=== PATIENT | female | born 1990 | race American Indian/Alaskan Native ===

== ENCOUNTER 2019-06-16 07:40 | Emergency (ER) | payer MEDICAID, OTHER ==
[2019-06-16] MEDS ORDERED: DELTASONE PO ONE (08:20)
[2019-06-16] MEDS ORDERED: NACL 0.9% 1000 ML 1,000 ML IV ONE ×2 (08:26→10:27)
[2019-06-16] MEDS ORDERED: REGLAN IV ONE (08:26)
[2019-06-16] MEDS ORDERED: ZOFRAN IV ONE ×2 (08:26→10:27)
[2019-06-16 08:49] LABS: Basophils # (Auto) 0.1 K/mm3 (0.0-0.1); Basophils % (Auto) 0.6 % (0.0-1.8); Eosinophils # (Auto) 0.1 K/mm3 (0.0-0.4); Eosinophils % (Auto) 0.8 % (0.0-4.3); Hematocrit 33.9 % (30.3-42.9); Hemoglobin 11.5 gm/dl (10.1-14.3); Lymphocytes # (Auto) 1.6 K/mm3 (1.2-5.4); Mean Corpuscular HGB Conc 34 % (30-34); Mean Corpuscular Volume 81 fl (79-97); Monocytes # (Auto) 0.7 K/mm3 (0.0-0.8); Monocytes % (Auto) 7.7 % (0.0-7.3); Platelet Count 263 K/mm3 (140-440); Red Blood Count 4.22 M/mm3 (3.65-5.03); Red Cell Distribution Width 18.2 % (13.2-15.2)
[2019-06-16 09:09] LABS: Bacteria,Urine 2+ /HPF (Negative); Bilirubin,Urine NEG (Negative); Blood,Urine NEG (Negative); Color,Urine Yellow (Yellow); Protein,Urine <15 mg/dL mg/dL (Negative); Urobilinogen,Urine < 2.0 mg/dL (<2.0)
--- NOTE | 2019-06-16 09:11 | Emergency Department Report ---
ED General Adult HPI - General Chief complaint: Nausea/Vomiting/Diarrhea Stated complaint: VOMITING BLOOD/10WKS PREG Time Seen by Provider: 06/16/19 08:10 Source: patient Mode of arrival: Ambulatory Limitations: No Limitations - History of Present Illness Initial comments: She presents to the emergency department with a chief complaint of severe morning sickness. Patient is a female who states she is approximately 10 weeks and this has significant amount of vomiting daily. Patient states is not able to keep anything down. Patient denies any abdominal pain, vaginal bleeding. Patient states that she is started on some ice that she feels like the lining of her stomach is now being thrown up. -: Gradual Consistency: constant Improves with: none Worsens with: none Associated Symptoms: denies other symptoms Treatments Prior to Arrival: none - Related Data Previous Rx's Medication Instructions Recorded Last Taken Type Metoclopramide [Reglan] 10 mg PO Q6HR PRN #20 tab 06/16/19 Unknown Rx Ondansetron [Zofran Odt] 4 mg PO Q4HR PRN #20 tab.rapdis 06/16/19 Unknown Rx Allergies Allergy/AdvReac Type Severity Reaction Status Date / Time Penicillins Allergy Unknown Verified 08/19/16 12:43 ED Review of Systems ROS: Stated complaint: VOMITING BLOOD/10WKS PREG Other details as noted in HPI Constitutional: denies: chills, fever Eyes: denies: eye pain, eye discharge, vision change ENT: denies: ear pain, throat pain Respiratory: denies: cough, shortness of breath, wheezing Cardiovascular: denies: chest pain, palpitations Endocrine: no symptoms reported Gastrointestinal: denies: abdominal pain, nausea, diarrhea Genitourinary: denies: urgency, dysuria, discharge Musculoskeletal: denies: back pain, joint swelling, arthralgia Skin: denies: rash, lesions Neurological: denies: headache, weakness, paresthesias Psychiatric: denies: anxiety, depression Hematological/Lymphatic: denies: easy bleeding, easy bruising ED Past Medical Hx - Past Medical History Previous Medical History?: Yes Additional medical history: Epilepsy - Surgical History Past Surgical History?: Yes Additional Surgical History: , LEEP - Social History Smoking Status: Former Smoker Substance Use Type: None - Medications Home Medications: Home Medications Medication Instructions Recorded Confirmed Last Taken Type Metoclopramide [Reglan] 10 mg PO Q6HR PRN #20 tab 06/16/19 Unknown Rx Ondansetron [Zofran Odt] 4 mg PO Q4HR PRN #20 tab.rapdis 06/16/19 Unknown Rx ED Physical Exam - General Limitations: No Limitations General appearance: alert, in no apparent distress - Head Head exam: Present: atraumatic, normocephalic - Eye Eye exam: Present: normal appearance - ENT ENT exam: Present: mucous membranes dry - Neck Neck exam: Present: normal inspection - Respiratory Respiratory exam: Present: normal lung sounds bilaterally. Absent: respiratory distress - Cardiovascular Cardiovascular Exam: Present: normal rhythm, tachycardia. Absent: systolic murmur, diastolic murmur, rubs, gallop - GI/Abdominal GI/Abdominal exam: Present: soft, normal bowel sounds. Absent: distended, tenderness - Extremities Exam Extremities exam: Present: normal inspection - Back Exam Back exam: Present: normal inspection - Neurological Exam Neurological exam: Present: alert, oriented X3, CN II-XII intact. Absent: motor sensory deficit - Psychiatric Psychiatric exam: Present: normal affect, normal mood - Skin Skin exam: Present: warm, dry, intact, normal color. Absent: rash ED Course Vital Signs 06/16/19 07:45 Temperature 99.1 F Pulse Rate 91 H Respiratory 20 Rate Blood Pressure 125/82 O2 Sat by Pulse 100 Oximetry ED Medical Decision Making - Lab Data Result diagrams: 06/16/19 08:36 06/16/19 08:36 Lab Results 06/16/19 06/16/19 06/16/19 Range/Units 08:36 08:36 Unknown WBC 8.8 (4.5-11.0) K/mm3 RBC 4.22 (3.65-5.03) M/mm3 Hgb 11.5 (10.1-14.3) gm/dl Hct 33.9 (30.3-42.9) % MCV 81 (79-97) fl MCH 27 L (28-32) pg MCHC 34 (30-34) % RDW 18.2 H (13.2-15.2) % Plt Count 263 (140-440) K/mm3 Lymph % (Auto) 18.0 (13.4-35.0) % [place] % (Auto) 7.7 H (0.0-7.3) % Eos % (Auto) 0.8 (0.0-4.3) % Baso % (Auto) 0.6 (0.0-1.8) % Lymph # 1.6 (1.2-5.4) K/mm3 [place] # 0.7 (0.0-0.8) K/mm3 Eos # 0.1 (0.0-0.4) K/mm3 Baso # 0.1 (0.0-0.1) K/mm3 Seg Neutrophils % 72.9 H (40.0-70.0) % Seg Neutrophils # 6.4 (1.8-7.7) K/mm3 Sodium 139 (137-145) mmol/L Potassium 4.3 (3.6-5.0) mmol/L Chloride 101.5 (98-107) mmol/L Carbon Dioxide 24 (22-30) mmol/L Anion Gap 18 mmol/L BUN 5 L (7-17) mg/dL Creatinine 0.6 L (0.7-1.2) mg/dL Estimated GFR > 60 ml/min BUN/Creatinine Ratio 8 % Glucose 90 (65-100) mg/dL Calcium 9.6 (8.4-10.2) mg/dL Total Bilirubin 0.20 (0.1-1.2) mg/dL AST 11 (5-40) units/L ALT 7 (7-56) units/L Alkaline Phosphatase 68 (35-129) units/L Total Protein 7.6 (6.3-8.2) g/dL Albumin 3.6 L (3.9-5) g/dL Albumin/Globulin Ratio 0.9 % Urine Color Yellow (Yellow) Urine Turbidity Slightly-cloudy (Clear) Urine pH 7.0 (5.0-7.0) Ur Specific [place] 1.015 (1.003-1.030) Urine Protein <15 mg/dl (Negative) mg/dL Urine Glucose (UA) Neg (Negative) mg/dL Urine Ketones Neg (Negative) mg/dL Urine Blood Neg (Negative) Urine Nitrite Neg (Negative) Urine Bilirubin Neg (Negative) Urine Urobilinogen < 2.0 (<2.0) mg/dL Ur Leukocyte Esterase Neg (Negative) Urine WBC (Auto) 2.0 (0.0-6.0) /HPF Urine RBC (Auto) 3.0 (0.0-6.0) /HPF U Epithel Cells (Auto) 18.0 H (0-13.0) /HPF Urine Bacteria (Auto) 2+ (Negative) /HPF - Medical Decision Making Some toes improve with IV medication and IV fluids Critical care attestation.: If time is entered above; I have spent that time in minutes in the direct care of this critically ill patient, excluding procedure time. ED Disposition Clinical Impression: Hyperemesis Disposition: - TO HOME OR SELFCARE Is pt being admited?: No Does the pt Need Aspirin: No Condition: Stable Instructions: Hyperemesis Gravidarum (ED), Morning Sickness (ED) Additional Instructions: return if worse Referrals: PRIMARY CARE, [Primary Care Provider] - 3-5 Days [facility] [Provider Group] - 3-5 Days Time of Disposition: 12:07
[2019-06-16 09:13] LABS: Alanine Aminotransferase 7 units/L (7-56); Albumin 3.6 g/dL (3.9-5); BUN/Creatinine Ratio 8; Blood Urea Nitrogen 5 mg/dL (7-17); Calcium 9.6 mg/dL (8.4-10.2); Hemolysis Index 7
[2019-06-16] MEDS ORDERED: BENADRYL IV ONE (10:28)
[2019-06-16 12:16] VITALS: BP 131/84
== END 2019-06-16 12:16 | disposition home or self-care (01) ==
LOC: ED 07:40
DX: O21.9 Vomiting of pregnancy, unspecified (principal); Z88.0 Allergy status to penicillin; Z3A.10 10 weeks gestation of pregnancy; Z87.891 Personal history of nicotine dependence
CPT/HCPCS: 36415; 80053; 81001; 85025; 96361; 96374; 96375; 96376; 99283; J1200; J2405; J2765; J7030

== ENCOUNTER 2019-09-20 08:59 | Outpatient (CLI) | payer MEDICAID ==
[2019-09-20 10:29] VITALS: BP 111/63
[2019-09-20] MEDS ORDERED: ONDANSETRON 4 MG/2 ML INJ ONE (10:53)
[2019-09-20] MEDS ORDERED: LACTATED RINGERS 1,000 ML ONE (10:53)
[2019-09-20 11:45] LABS: Basophils % (Auto) 0.2 % (0.0-1.8); Eosinophils % (Auto) 0.5 % (0.0-4.3); Hematocrit 26.7 % (30.3-42.9); Hemoglobin 8.9 gm/dl (10.1-14.3); Lymphocytes # (Auto) 1.6 K/mm3 (1.2-5.4); Lymphocytes % (Auto) 16.9 % (13.4-35.0); Mean Corpuscular HGB Conc 33 % (30-34); Mean Corpuscular Volume 83 fl (79-97); Monocytes # (Auto) 0.7 K/mm3 (0.0-0.8); Platelet Count 284 K/mm3 (140-440); Red Cell Distribution Width 15.1 % (13.2-15.2)
[2019-09-20] MEDS ORDERED: ONDANSETRON 4 MG/2 ML INJ IV ONE (11:59)
[2019-09-20] MEDS ORDERED: LACTATED RINGERS 1,000 ML IV SCH (12:00)
[2019-09-20 12:10] LABS: Bilirubin,Urine NEG (Negative); Blood,Urine NEG (Negative); Color,Urine Yellow (Yellow); Protein,Urine <15 mg/dL mg/dL (Negative); Urobilinogen,Urine < 2.0 mg/dL (<2.0); WBC,Urine < 1.0 /HPF (0.0-6.0)
[2019-09-20 12:16] LABS: Alanine Aminotransferase 7 units/L (7-56); Albumin 2.9 g/dL (3.9-5); BUN/Creatinine Ratio 8; Blood Urea Nitrogen 3 mg/dL (7-17); Calcium 8.8 mg/dL (8.4-10.2); Hemolysis Index 4
[2019-09-20] MEDS ORDERED: ACETAMINOPHEN 500 MG TAB PO ONE (13:36)
[2019-09-20] MEDS ORDERED: ACETAMINOPHEN 500 MG TAB ONE (13:41)
== END 2019-09-20 14:46 | disposition home or self-care (01) ==
LOC: TRG 08:59 → ED 08:59 → TRG 08:59 → ED 09:32 → TRG 09:32 → EDSTATUS 09:41 → TRG 14:46
PROVIDERS: ATTEND Obstetrics & Gynecology
DX: O21.2 Late vomiting of pregnancy (principal); Z3A.24 24 weeks gestation of pregnancy
CPT/HCPCS: 36415; 59025; 80053; 81001; 85025; 96361; 96365; J2405; J7120; 96360; 96374

== ENCOUNTER 2019-09-20 14:40 | Emergency (ER) | payer MEDICAID ==
--- NOTE | 2019-09-20 15:30 | Emergency Department Report ---
Blank Doc - Documentation Documentation: 29-year-old female that presents with n/v with blood. Was cleared by L/D. [facility] is 24 weeks . Was sent by OBGYN. This initial assessment/diagnostic orders/clinical plan/treatment(s) is/are subject to change based on patient's health status, clinical progression and re- assessment by fellow clinical providers in the ED. Further treatment and workup at subsequent clinical providers discretion. Patient/guardians urged not to elope from the ED as their condition may be serious if not clinically assessed and managed. Initial orders include: 1- Patient sent to [facility] for further evaluation and treatment 2- labs 3- UA
[2019-09-20] MEDS ORDERED: ONDANSETRON 4 MG ODT TAB PO ONE (20:16)
[2019-09-20 20:34] VITALS: BP 103/62
[2019-09-20 21:02] LABS: Hemoglobin 9.2 gm/dl (10.1-14.3)
--- NOTE | 2019-09-20 21:14 | Emergency Department Report ---
ED GI Bleed HPI - General Chief complaint: Nausea/Vomiting/Diarrhea Stated complaint: 24 WKS VOMIT BLOOD Time Seen by Provider: 09/20/19 15:29 Source: patient Mode of arrival: Ambulatory Limitations: No Limitations - History of Present Illness Initial comments: Ms. Patel is a 29 yo female patient who is currently 24 weeks 3 days who presents with vomiting blood today. Has had severe vomiting throughout . Currently has heartburn. She has had 5 episode of red and brownish emesis. Has mild headache and lightheadedness. Hx of anemia during previous requiring iron transfusion. No current dark or bloody stools. Was evaluated in OB triage prior to returning to the ED. 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 Kaycee Mijares MD complaint: blood streaked emesis, coffee ground emesis -: Gradual, This morning Quality: painless Consistency: now resolved Improves with: medication Worsens with: none Context: other (currently ) Associated Symptoms: other (mild headache mild lightheadedness) - Related Data Previous Rx's Medication Instructions Recorded Last Taken Type Metoclopramide [Reglan] 10 mg PO Q6HR PRN #20 tab 06/16/19 Unknown Rx Ondansetron [Zofran Odt] 4 mg PO Q4HR PRN #20 tab.rapdis 06/16/19 Unknown Rx Allergies Allergy/AdvReac Type Severity Reaction Status Date / Time Penicillins Allergy Unknown Verified 09/20/19 15:32 ED Review of Systems ROS: Stated complaint: 24 WKS VOMIT BLOOD Other details as noted in HPI Comment: All other systems reviewed and negative Constitutional: denies: fever, malaise Cardiovascular: chest pain (heartburn) Gastrointestinal: nausea, vomiting. denies: abdominal pain Neurological: headache ED Past Medical Hx - Past Medical History Previous Medical History?: Yes Hx Hypertension: No Hx Diabetes: No Hx Deep Vein Thrombosis: No Hx Renal Disease: No Hx Sickle Cell Disease: No Hx Seizures: No Hx Asthma: No Hx HIV: No Additional medical history: Epilepsy - Surgical History Past Surgical History?: Yes Additional Surgical History: , LEEP - Social History Smoking Status: Never Smoker Substance Use Type: None - Medications Home Medications: Home Medications Medication Instructions Recorded Confirmed Last Taken Type Metoclopramide [Reglan] 10 mg PO Q6HR PRN #20 tab 08/28/19 Unknown Rx Ondansetron [Zofran Odt] 4 mg PO Q4HR PRN #20 tab.rapdis 06/16/19 Unknown Rx ED Physical Exam - General Limitations: No Limitations General appearance: alert, in no apparent distress, other (pleasant no acute distress appears well) - Head Head exam: Present: atraumatic, normocephalic - Eye Eye exam: Present: normal appearance - ENT ENT exam: Present: mucous membranes moist - Neck Neck exam: Present: normal inspection, full ROM - Respiratory Respiratory exam: Present: normal lung sounds bilaterally, rhonchi. Absent: respiratory distress, wheezes, rales, stridor - Cardiovascular Cardiovascular Exam: Present: regular rate, normal rhythm, normal heart sounds. Absent: systolic murmur, diastolic murmur, rubs, gallop - GI/Abdominal GI/Abdominal exam: Present: soft, distended, tenderness, guarding, rebound, normal bowel sounds - Extremities Exam Extremities exam: Present: normal inspection - Neurological Exam Neurological exam: Present: alert, oriented X3 - Psychiatric Psychiatric exam: Present: normal affect, normal mood - Skin Skin exam: Present: warm, dry, intact, normal color. Absent: rash ED Course Vital Signs 09/20/19 09/20/19 15:29 20:33 Temperature 98.7 F 99.4 F Pulse Rate 83 76 Respiratory 18 16 Rate Blood Pressure 105/51 Blood Pressure 103/62 [Right] O2 Sat by Pulse 100 100 Oximetry ED Medical Decision Making - Lab Data Result diagrams: 09/20/19 20:35 - Medical Decision Making Gabriella is a very pleasant 29-year-old female who presents with reported hematemesis. Serial H&H's revealed hemoglobin 8.6 trending upward to 9.2 over an 8 hour period. I do not suspect active GI bleed. Katerina-Franklin tear is a possibility. Ms. Patel appears well. Ambulatory without difficulty. She tolerated PO in the ED without further vomiting over a 6 hour period. She verbalized understanding of return precautions. She will take the Zofran on a scheduled basis. She has a appointment scheduled with Dr. Alfaro her personal tool or die drawing checker in 3 days on . Critical care attestation.: If time is entered above; I have spent that time in minutes in the direct care of this critically ill patient, excluding procedure time. ED Disposition Clinical Impression: Hyperemesis gravidarum, Hematemesis with nausea Disposition: DC-01 TO HOME OR SELFCARE Is pt being admited?: No Does the pt Need Aspirin: No Condition: Stable Additional Instructions: Please return to the ER immediately if you develop chest pain, lightheadedness, dark stools or bloody stools. Referrals: KAYCEE MIJARES MD [Staff Physician] - 3-5 Days
== END 2019-09-20 22:00 | disposition home or self-care (01) ==
LOC: ED 14:40
DX: O21.0 Mild hyperemesis gravidarum (principal); Z3A.24 24 weeks gestation of pregnancy; Z98.890 Other specified postprocedural states; Z88.0 Allergy status to penicillin
CPT/HCPCS: 36415; 59025; 80053; 81001; 85014; 85018; 85025; 96360; 96361; 96365; 96374; J2405; J7120; Q0162

== ENCOUNTER 2020-01-02 23:18 | Outpatient (CLI) | payer MEDICAID ==
[2020-01-02] MEDS ORDERED: ACETAMINOPHEN W/CODEINE 300-30 MG TAB PO ONE (23:31)
== END 2020-01-03 00:21 | disposition home or self-care (01) ==
LOC: TRG 23:18
PROVIDERS: ATTEND Obstetrics & Gynecology
DX: O47.1 False labor at or after 37 completed weeks of gestation (principal); Z3A.39 39 weeks gestation of pregnancy
CPT/HCPCS: 59025; Q0177

== ENCOUNTER 2021-01-05 15:20 | Emergency (ER) | payer SELFPAY ==
[2021-01-05] MEDS ORDERED: ONDANSETRON 4 MG/2 ML INJ IM ONE (15:40)
[2021-01-05] MEDS ORDERED: BUTALB/ACETAMINOPHEN/CAFFEINE TAB PO ONE (15:40)
[2021-01-05] MEDS ORDERED: HYOSCYAMINE SUBL 0.125 MG TAB SL ONE (15:40)
--- NOTE | 2021-01-05 16:28 | Emergency Department Report ---
- General Chief Complaint: Headache Stated Complaint: VOMITTING/DIARRHEA/BODY ACHES Time Seen by Provider: 01/05/21 15:36 Source: patient Mode of arrival: Ambulatory Limitations: No Limitations - History of Present Illness Initial Comments: Patient is a 30-year-old female presents emergency room complaints of viral-like symptoms that began 5 days ago. She has associated generalized body aches, headache, chills, fever, nausea, vomiting, diarrhea. She states that she has been taking Tylenol, ibuprofen, Sudafed without much relief. She states that she last took ibuprofen approximately 1 hour prior to arrival. She denies any cough, shortness of breath, abdominal pain, urinary symptoms, back pain. She states that she has had a sick contact, she states her [id number] son had the same symptoms last week. She states that he went to the ER and was diagnosed with a viral illness. She states that he was tested for COVID-19 and was negative. She has not received COVID-19 testing. She has a past medical history of epilepsy. No allergies to medications. Last menstrual cycle 12/22/2020. She denies any recent travel. - Related Data Home Medications Medication Instructions Recorded Confirmed Last Taken Lamictal 200 mg PO BID 01/08/20 01/08/20 01/07/20 09:00 Previous Rx's Medication Instructions Recorded Last Taken Type Metoclopramide [Reglan] 10 mg PO Q6HR PRN #20 tab 06/16/19 Unknown Rx Ondansetron [Zofran Odt] 4 mg PO Q4HR PRN #20 tab.rapdis 06/16/19 Unknown Rx Docusate Sodium [Colace] 100 mg PO BID PRN #60 capsule 01/08/20 Unknown Rx Ibuprofen [Motrin] 800 mg PO Q8HR PRN #40 tablet 01/08/20 Unknown Rx oxyCODONE /ACETAMINOPHEN [Percocet 2 tab PO Q6HR PRN #40 tablet 01/08/20 Unknown Rx 5/325] Butalb/Acetaminophen/Caffeine 1 cap PO Q8HR PRN #12 cap 01/05/21 Unknown Rx [Fioricet 50-300-40 mg CAP] Ondansetron [Zofran Odt] 4 mg PO Q8HR PRN #10 tab.rapdis 01/05/21 Unknown Rx Allergies Allergy/AdvReac Type Severity Reaction Status Date / Time No Known Allergies Allergy Unverified 01/05/21 15:26 ED Review of Systems ROS: Stated complaint: VOMITTING/DIARRHEA/BODY ACHES Other details as noted in HPI Comment: All other systems reviewed and negative ED Past Medical Hx - Past Medical History Previous Medical History?: Yes Hx Hypertension: No Hx Heart Attack/AMI: No Hx Diabetes: No Hx Deep Vein Thrombosis: No Hx Liver Disease: No Hx Renal Disease: No Hx Sickle Cell Disease: No Hx Seizures: Yes (taken mediacations) Hx Asthma: No Hx COPD: No Hx HIV: No Additional medical history: Epilepsy - Surgical History Past Surgical History?: Yes Hx Pacemaker: No Hx Internal Defibrillator: No Additional Surgical History: , LEEP - Social History Smoking Status: Never Smoker Substance Use Type: None - Medications Home Medications: Home Medications Medication Instructions Recorded Confirmed Last Taken Type Metoclopramide [Reglan] 10 mg PO Q6HR PRN #20 tab 06/16/19 01/07/20 Unknown Rx Ondansetron [Zofran Odt] 4 mg PO Q4HR PRN #20 tab.rapdis 06/16/19 01/07/20 Unknown Rx Docusate Sodium [Colace] 100 mg PO BID PRN #60 capsule 01/08/20 Unknown Rx Ibuprofen [Motrin] 800 mg PO Q8HR PRN #40 tablet 01/08/20 Unknown Rx Lamictal 200 mg PO BID 01/08/20 01/08/20 01/07/20 09:00 History oxyCODONE /ACETAMINOPHEN [Percocet 2 tab PO Q6HR PRN #40 tablet 01/08/20 Unknown Rx 5/325] Butalb/Acetaminophen/Caffeine 1 cap PO Q8HR PRN #12 cap 01/05/21 Unknown Rx [Fioricet 50-300-40 mg CAP] Ondansetron [Zofran Odt] 4 mg PO Q8HR PRN #10 tab.rapdis 01/05/21 Unknown Rx ED Physical Exam - General Limitations: No Limitations General appearance: alert, in no apparent distress - Head Head exam: Present: atraumatic, normocephalic - Eye Eye exam: Present: normal appearance - ENT ENT exam: Present: mucous membranes moist - Respiratory Respiratory exam: Present: normal lung sounds bilaterally. Absent: respiratory distress, wheezes, rales, rhonchi, stridor, chest wall tenderness, accessory muscle use, decreased breath sounds, prolonged expiratory - Cardiovascular Cardiovascular Exam: Present: regular rate, normal rhythm, normal heart sounds. Absent: systolic murmur, diastolic murmur, rubs, gallop - GI/Abdominal GI/Abdominal exam: Present: soft, normal bowel sounds. Absent: distended, tenderness, guarding, rebound, rigid - Neurological Exam Neurological exam: Present: alert, oriented X3 - Psychiatric Psychiatric exam: Present: normal affect, normal mood - Skin Skin exam: Present: warm, dry, intact ED Course Vital Signs 01/05/21 01/05/21 15:25 16:41 Temperature 101.3 F H 99.9 F H Pulse Rate 108 H 95 H Respiratory 20 18 Rate Blood Pressure 135/82 Blood Pressure 116/73 [Right] O2 Sat by Pulse 99 98 Oximetry ED Medical Decision Making - Lab Data Vital Signs 01/05/21 01/05/21 15:25 16:41 Temperature 101.3 F H 99.9 F H Pulse Rate 108 H 95 H Respiratory 20 18 Rate Blood Pressure 135/82 Blood Pressure 116/73 [Right] O2 Sat by Pulse 99 98 Oximetry - Medical Decision Making Patient is a 30-year-old female presents emergency room complaints of viral-like symptoms that began 5 days ago. She has associated generalized body aches, headache, chills, fever, nausea, vomiting, diarrhea. She states that she has been taking Tylenol, ibuprofen, Sudafed without much relief. She states that she last took ibuprofen approximately 1 hour prior to arrival. She denies any cough, shortness of breath, abdominal pain, urinary symptoms, back pain. She states that she has had a sick contact, she states her [id number] son had the same symptoms last week. She states that he went to the ER and was diagnosed with a viral illness. She states that he was tested for COVID-19 and was negative. She has not received COVID-19 testing. She has a past medical history of epilepsy. No allergies to medications. Last menstrual cycle 12/22/2020. She denies any recent travel. Initial vitals with fever and tachycardia which improved upon medication administration. No abnormality on physical examination as documented in chart. Patient given Zofran, Levsin, Fioricet. After medications patient was feeling better, she was able to tolerate p.o. intake without difficulty, she had no further episodes of vomiting or diarrhea while in the emergency department. Symptoms likely related to viral illness, patient's child had similar symptoms. Patient is presenting with these symptoms during COVID-19 pandemic, discussed the possibility of COVID-19 with patient, discuss strict return precautions, discussed outpatient testing, discussed self quarantine. Patient given prescription for Fioricet and Zofran. Advised patient Please take medication as prescribed. Please increase your fluid intake over the next several days. May take Tylenol as needed for fever or body aches. May take [id number] cold symptom relief medication such as Mucinex or TheraFlu. Follow-up with a primary care doctor for reexamination. Return to emergency room immediately for any new or worsening symptoms including but not limited to difficulty breathing, shortness of breath, severe chest pain, unable to tolerate by mouth intake, etc. Please self quarantine for 10 days from the onset of your symptoms. Please do not go out in public. If you are around others at home please wear a mask. If you need to cough or sneeze please do so in a napkin and immediately throw it away and immediately wash your hands. Wash your hands frequently. Wipe everything down. Recommend for you to get COVID-19 testing, may have this done at primary care doctor, health department, [facility], etc. Critical care attestation.: If time is entered above; I have spent that time in minutes in the direct care of this critically ill patient, excluding procedure time. ED Disposition Clinical Impression: Viral illness Disposition: DC-01 TO HOME OR SELFCARE Is pt being admited?: No Does the pt Need Aspirin: No Condition: Stable Instructions: COVID-19: How to Protect Yourself and Others - CDC, Viral Illness, Adult, Prevent the Spread of COVID-19 if You Are Sick - CDC Additional Instructions: Please take medication as prescribed. Please increase your fluid intake over the next several days. May take Tylenol as needed for fever or body aches. May take [id number] cold symptom relief medication such as Mucinex or TheraFlu. Follow-up with a primary care doctor for reexamination. Return to emergency room immediately for any new or worsening symptoms including but not limited to difficulty breathing, shortness of breath, severe chest pain, unable to tolerate by mouth intake, etc. Please self quarantine for 10 days from the onset of your symptoms. Please do not go out in public. If you are around others at home please wear a mask. If you need to cough or sneeze please do so in a napkin and immediately throw it away and immediately wash your hands. Wash your hands frequently. Wipe everything down. Recommend for you to get COVID- 19 testing, may have this done at primary care doctor, health department, [facility], etc. Prescriptions: Butalb/Acetaminophen/Caffeine [Fioricet 50-300-40 mg CAP] 1 cap PO Q8HR PRN #12 cap PRN Reason: headache Ondansetron [Zofran Odt] 4 mg PO Q8HR PRN #10 tab.rapdis PRN Reason: nausea/vomiting Referrals: PRIMARY CAREMD [Primary Care Provider] - 2-3 Days GILBERTO PERKINS MD [Staff Physician] - 2-3 Days [facility] [Provider Group] - 2-3 Days Time of Disposition: 17:09 Print Language: MACEDON[place]
[2021-01-05 16:42] VITALS: BP 116/73
== END 2021-01-05 17:27 | disposition home or self-care (01) ==
LOC: ED 15:20
DX: B34.9 Viral infection, unspecified (principal); G40.909 Epilepsy, unspecified, not intractable, without status epilepticus; Z79.899 Other long term (current) drug therapy
CPT/HCPCS: 96372; 99282; J2405